=== PATIENT | female | born 1985 | race Caucasian/White ===

== ENCOUNTER 2021-04-03 18:19 | Emergency (ER) | payer OTHER ==
[~2021-04-03] VITALS: Ht 170.2 cm; Wt 108.9 kg
[~2021-04-03 18:19] MED LIST: FLEXERIL PO; TORADOL 10 MG T10 MG PO
[2021-04-03] MEDS ORDERED: VENLAFAXINE HCL25 MG (18:28)
[2021-04-03] MEDS ORDERED: OMEPRAZOLE 20 M20 M1 (18:28)
[2021-04-03 18:42] LABS: URINE BILIRUBIN NEGATIVE (Negative); URINE BLOOD NEGATIVE (Negative); URINE CLARITY CLEAR; URINE COLOR YELLOW; URINE GLUCOSE-RANDOM NEGATIVE (Negative); URINE KETONES NEGATIVE (Negative); URINE LEUKOCYTES-REFLEX 1+ (Negative); URINE NITRITE-REFLEX NEGATIVE (Negative); URINE PROTEIN NEGATIVE (Negative); URINE UROBILINOGEN 0.2 E.U./dl (0.2-1.0)
[2021-04-03 19:00] LABS: CASTS None Seen /LPF (None Seen); CRYSTALS None Seen /LPF (None Seen); MUCUS None Seen strn/LPF (None Seen); SQUAMOUS >10 Many /LPF (0-3)
[2021-04-03 19:03] LABS: BACTERIA-REFLEX 1-9 Few /HPF (None Seen); URINE WBC-REFLEX 6-15 Few /HPF (0-5); YEAST-REFLEX Present (None Seen)
[2021-04-03 19:04] LABS: URINE RBC None Seen /HPF (0-2)
[2021-04-03 19:07] LABS: ABSOLUTE BASOPHILS 0.1 thou/uL (0.0-0.2); ABSOLUTE EOSINOPHILS 0.1 thou/uL (0.0-0.7); ABSOLUTE LYMPHOCYTES 3.1 thou/uL (0.8-5.3); ABSOLUTE MONOCYTES 0.7 thou/uL (0.0-1.2); ABSOLUTE NEUTROPHILS 5.4 thou/uL (1.6-8.1); BASOPHILS 0.9 %; HEMATOCRIT 32.6 % (37.0-47.0); HEMOGLOBIN 10.9 gm/dL (12.0-15.0); LYMPHOCYTES 32.8 %; MCHC 33.6 g/dL (28.0-37.0); MCV 83.3 fL (80.0-100.0); MONOCYTES 7.2 %; MPV 6.5 fl. (7.2-11.1); NUCLEATED RBCS 0 /100WBC; PLATELET COUNT* 396 thou/uL (150-400); POLYS 58.1 %; RBC 3.91 mil/uL (4.20-5.00); RDW-CV 14.6 % (10.5-14.5); WBC 9.3 thou/uL (4.0-11.0)
[2021-04-03 19:14] LABS: CALCIUM 8.7 mg/dL (8.5-10.1); CREATININE 0.8 mg/dL (0.6-1.3); POTASSIUM 4.3 mmol/L (3.5-5.1)
[2021-04-03 19:18] LABS: ALBUMIN 3.5 g/dL (3.4-5.0); TOTAL BILIRUBIN 0.2 mg/dL (<0.1-1.0); TOTAL PROTEIN 7.5 g/dL (6.4-8.2)
[2021-04-03] MEDS ORDERED: CEPHALEXIN500 MG PO ×2 (20:50→21:29)
[2021-04-03] MEDS ORDERED: PHENERGAN 25 MG25 M1 PO (20:50)
[2021-04-03] MEDS ORDERED: METHOCARBAMOL500 M2 PO ×2 (20:50→21:29)
[2021-04-03] MEDS ORDERED: DIFLUCAN150 M1 PO ×2 (20:50→21:29)
[2021-04-03] MEDS ORDERED: PHENERGAN 25 MG25 MG PO (21:29)
[2021-04-03 21:38] VITALS: BP 128/77
--- NOTE | 2021-04-04 09:19 | EKG ---
[place] [address] ELECTROCARDIOGRAM REPORT Name: GABI MOROCHO Room: [facility]#: [id number] Admission: 04/03/21 Attend Phys: Discharge: 04/03/21 Date of : 81 Date of Service: 04/03/211824 Report #: [id number] THIS REPORT FOR: //name// [facility] ED Test Date: 2021-04-03 Test Time: 18:25:28 Pat Name: GABI MOROCHO Department: Room: Gender: F Certified Court Interpreter: PATRICIA : 1985 Requested By: Vicenta Woodruff Order Number: [id number] Lucy MD: Hema Gregory Measurements Intervals [place] Rate: 75 P: 56 MD: 149 QRS: 18 QRSD: 96 T: 59 QT: 397 QTc: 444 Interpretive Statements Sinus rhythm Low voltage limb leads No previous ECG available for comparison Electronically Signed On 04-04-2021 9:19:34 CDT by Hema Gregory [email or web address] <ELECTRONICALLY SIGNED> By: Hema Gregory MD, [facility] 04/04/21918 1825 1825 Hema Gregory MD, [facility] /EPI
== END 2021-04-03 21:39 | disposition home or self-care (01) ==
LOC: M.ERS 18:19
PROVIDERS: Nurse Practitioner Family
DX: N39.0 Urinary tract infection, site not specified (principal); K59.00 Constipation, unspecified; B37.9 Candidiasis, unspecified